=== PATIENT | male | born 1995 | race Hispanic/Latino ===

== ENCOUNTER 2023-10-28 15:46 | Emergency (ER) | payer OTHER ==
[2023-10-28] MEDS ORDERED: Ketorolac Tromethamine 30 MG (1 mL) VIAL ONE (16:47)
[2023-10-28 18:18] LABS: Bilirubin Neg (Negative); Blood, Urine Negative (Negative); Clarity Clear (Clear); Glucose, Urine (Dipstick) Normal (Negative); Ketone, Urine Negative (Negative); Leukocyte Negative (Negative); Nitrite Negative (Negative); Protein, Urine (Dipstick) Negative (Neg-Trace); Urobilinogen Normal mg/dL (Less than 2)
[2023-10-28 18:40] LABS: Bacteria/HPF None Seen HPF (None Seen); CAUTI Indications for Culture Pelvic or flank pain; RBC/HPF None Seen HPF (0-3); Squamous Epithelial 0-3 HPF (0-3); WBC/HPF None Seen HPF (0-3)
[2023-10-28 18:41] LABS: Urine Culture Reflex No No
== END 2023-10-28 16:45 | disposition home or self-care (01) ==
LOC: CSHERS 15:46
DX: M54.2 Cervicalgia (principal); M79.642 Pain in left hand; V43.62XA Car passenger injured in collision with other type car in traffic accident, initial encounter
CPT/HCPCS: 71046; 81001; 96372; J1885